=== PATIENT | female | born 1985 | race Caucasian/White ===

== ENCOUNTER 2017-10-17 14:04 | Emergency (ER) | payer OTHER, MEDICAID ==
[~2017-10-17] VITALS: Ht 175.3 cm; Wt 121.6 kg
[~2017-10-17 14:04] MED LIST: AMOXICILLIN 50500 MG PO; FLONASE 0.05%50 MCG NASAL; IBUPROFEN 800800 M1 PO; NAPROSYN500 MG PO; NOHOMEMEDICATIONS; PROVENTIL HFA6.7 G1 INH
[2017-10-17 14:47] LABS: URINE BILIRUBIN NEGATIVE (Negative); URINE BLOOD 3+ (Negative); URINE COLOR YELLOW; URINE GLUCOSE-RANDOM NEGATIVE (Negative); URINE KETONES NEGATIVE (Negative); URINE LEUKOCYTES-REFLEX NEGATIVE (Negative); URINE NITRITE-REFLEX NEGATIVE (Negative); URINE PROTEIN NEGATIVE (Negative); URINE SPECIFIC GRAVITY >= 1.030 (1.005-1.030); URINE UROBILINOGEN 0.2 E.U./dl (0.2-1.0)
[2017-10-17 14:48] LABS: URINE CLARITY HAZY
[2017-10-17] MEDS ORDERED: IBUPROFEN 800800 M1 PO (14:51)
[2017-10-17] MEDS ORDERED: ROBAXIN 750 MG750 M1 PO (14:51)
[2017-10-17 14:55] LABS: BACTERIA-REFLEX None Seen /HPF (None Seen); CASTS None Seen /LPF (None Seen); CRYSTALS None Seen /LPF (None Seen); MUCUS >6 Heavy strn/LPF (None Seen); SQUAMOUS >10 Many /LPF (0-3); URINE RBC 0-2 Rare /HPF (0-2); URINE WBC-REFLEX None Seen /HPF (0-5)
[2017-10-17 14:58] VITALS: BP 138/99
== END 2017-10-17 14:59 | disposition home or self-care (01) ==
LOC: M.ERS 14:04
PROVIDERS: Nurse Practitioner Family
DX: S39.012A Strain of muscle, fascia and tendon of lower back, initial encounter (principal); S29.012A Strain of muscle and tendon of back wall of thorax, initial encounter; F17.210 Nicotine dependence, cigarettes, uncomplicated; Z88.1 Allergy status to other antibiotic agents; Z88.5 Allergy status to narcotic agent; X58.XXXA Exposure to other specified factors, initial encounter; Y93.89 Activity, other specified; Y92.89 Other specified places as the place of occurrence of the external cause; Y99.8 Other external cause status

== ENCOUNTER 2017-10-30 08:16 | Emergency (ER) | payer OTHER, MEDICAID ==
[~2017-10-30] VITALS: Ht 175.3 cm; Wt 121.6 kg
[~2017-10-30 08:16] MED LIST changes: +ROBAXIN 750 MG750 M1 PO
[2017-10-30] MEDS ORDERED: ORAJEL (08:23)
[2017-10-30] MEDS ORDERED: IBUPROFEN 200200 M1 PO (08:23)
[2017-10-30] MEDS ORDERED: TYLENOL EXTRA500 MG PO (08:23)
[2017-10-30] MEDS ORDERED: NORCO 5-325 TA1 EACH PO (09:17)
[2017-10-30] MEDS ORDERED: IBUPROFEN 800800 MG PO (09:17)
[2017-10-30 09:24] VITALS: BP 150/102
== END 2017-10-30 09:24 | disposition home or self-care (01) ==
LOC: M.ERS 08:16
DX: K08.89 Other specified disorders of teeth and supporting structures (principal); F17.210 Nicotine dependence, cigarettes, uncomplicated; Z88.1 Allergy status to other antibiotic agents; Z88.5 Allergy status to narcotic agent

== ENCOUNTER 2017-12-03 15:29 | Emergency (ER) | payer OTHER, MEDICAID ==
[~2017-12-03] VITALS: Ht 175.3 cm; Wt 122.0 kg
[~2017-12-03 15:29] MED LIST changes: +IBUPROFEN 200200 M1 PO; +IBUPROFEN 800800 MG PO; +NORCO 5-325 TA1 EACH PO; +ORAJEL; +TYLENOL EXTRA500 MG PO
[2017-12-03 15:34] VITALS: BP 138/94
[2017-12-03] MEDS ORDERED: AMOXICILLIN 50500 MG PO (15:48)
[2017-12-03] MEDS ORDERED: TRAMADOL 50 MG50 MG PO (15:49)
[2017-12-03] MEDS ORDERED: LIDOCAINE VISC100 ML PO (15:49)
[2017-12-03] MEDS ORDERED: IBUPROFEN 800800 MG PO (15:49)
== END 2017-12-03 16:05 | disposition home or self-care (01) ==
LOC: M.ERS 15:29
DX: K08.89 Other specified disorders of teeth and supporting structures (principal); F17.210 Nicotine dependence, cigarettes, uncomplicated; Z88.1 Allergy status to other antibiotic agents; Z88.5 Allergy status to narcotic agent

== ENCOUNTER 2018-03-30 16:27 | Emergency (ER) | payer OTHER, MEDICAID ==
[~2018-03-30] VITALS: Ht 175.3 cm; Wt 129.3 kg
[~2018-03-30 16:27] MED LIST changes: +LIDOCAINE VISC100 ML PO; +TRAMADOL 50 MG50 MG PO
[2018-03-30 19:28] LABS: INFLUENZA A ANTIGEN None Detected (None Detect)
[2018-03-30] MEDS ORDERED: MEDROLDOSEPACK PO (19:36)
[2018-03-30] MEDS ORDERED: OSELB75 PO (19:36)
[2018-03-30] MEDS ORDERED: VENTOLIN HFA 1818 GM INH (19:36)
[2018-03-30 19:54] VITALS: BP 145/89
== END 2018-03-30 19:55 | disposition home or self-care (01) ==
LOC: M.ERS 16:27
PROVIDERS: Nurse Practitioner Family
DX: J11.1 Influenza due to unidentified influenza virus with other respiratory manifestations (principal); Z88.5 Allergy status to narcotic agent; Z88.6 Allergy status to analgesic agent

== ENCOUNTER 2018-12-04 10:13 | Emergency (ER) | payer OTHER, MEDICAID ==
[~2018-12-04] VITALS: Ht 175.3 cm; Wt 148.8 kg
[~2018-12-04 10:13] MED LIST changes: +MEDROLDOSEPACK PO; +OSELB75 PO; +VENTOLIN HFA 1818 GM INH
[2018-12-04] MEDS ORDERED: FLEXERIL PO (11:10)
[2018-12-04] MEDS ORDERED: TRAMADOL 50 MG50 MG PO (11:10)
[2018-12-04 11:20] VITALS: BP 133/94
== END 2018-12-04 11:21 | disposition home or self-care (01) ==
LOC: M.ERS 10:13
DX: S33.5XXA Sprain of ligaments of lumbar spine, initial encounter (principal); F17.210 Nicotine dependence, cigarettes, uncomplicated; Z88.6 Allergy status to analgesic agent; Z88.8 Allergy status to other drugs, medicaments and biological substances; X50.1XXA Overexertion from prolonged static or awkward postures, initial encounter; Y92.89 Other specified places as the place of occurrence of the external cause; Y93.89 Activity, other specified; Y99.8 Other external cause status

== ENCOUNTER 2020-11-26 07:45 | Emergency (ER) | payer OTHER ==
[~2020-11-26] VITALS: Ht 175.3 cm; Wt 153.8 kg
[~2020-11-26 07:45] MED LIST changes: +FLEXERIL PO
[2020-11-26 08:07] LABS: URINE BILIRUBIN NEGATIVE (Negative); URINE BLOOD 3+ (Negative); URINE CLARITY SL CLOUDY; URINE COLOR YELLOW; URINE GLUCOSE-RANDOM NEGATIVE (Negative); URINE KETONES NEGATIVE (Negative); URINE NITRITE-REFLEX NEGATIVE (Negative); URINE PROTEIN 2+ (Negative); URINE SPECIFIC GRAVITY 1.025 (1.005-1.030); URINE UROBILINOGEN 0.2 E.U./dl (0.2-1.0)
[2020-11-26 08:08] LABS: URINE LEUKOCYTES-REFLEX 2+ (Negative)
[2020-11-26 08:15] LABS: CASTS None Seen /LPF (None Seen); CRYSTALS None Seen /LPF (None Seen); MUCUS 0-3 Light strn/LPF (None Seen); URINE WBC-REFLEX >25 Many /HPF (0-5)
[2020-11-26 08:16] LABS: SQUAMOUS 4-10 Moderate /LPF (0-3)
[2020-11-26] MEDS ORDERED: PYRIDIUM200 MG PO (08:29)
[2020-11-26] MEDS ORDERED: NAPROSYN500 MG PO (08:29)
[2020-11-26] MEDS ORDERED: MACROBID 100 M100 M1 PO (08:29)
[2020-11-26 08:34] VITALS: BP 154/103
== END 2020-11-26 08:35 | disposition home or self-care (01) ==
LOC: M.ERS 07:45
PROVIDERS: Family Medicine
DX: N39.0 Urinary tract infection, site not specified (principal); K59.00 Constipation, unspecified; R33.9 Retention of urine, unspecified; F17.210 Nicotine dependence, cigarettes, uncomplicated; Z88.6 Allergy status to analgesic agent

== ENCOUNTER 2021-05-29 09:00 | Emergency (ER) | payer OTHER ==
[~2021-05-29] VITALS: Ht 175.3 cm; Wt 149.2 kg
[~2021-05-29 09:00] MED LIST changes: +MACROBID 100 M100 M1 PO; +PYRIDIUM200 MG PO
--- NOTE | 2021-05-29 09:56 | EKG ---
[place] [address] ELECTROCARDIOGRAM REPORT Name: TERESA MCCLAIN Room: [facility].R.#: [id number] Admission: Attend Phys: Discharge: Date of : 89 Date of Service: 05/29/21930 Report #: [id number] THIS REPORT FOR: //name// [facility] ED Test Date: 2021-05-29 Test Time: 09:31:45 Pat Name: TERESA MCCLAIN Department: Room: Gender: [employer] Et[employer] Operator: : 1985 Requested By: Zenon Sky Order Number: [id number] MD: Darron Escudero Measurements Intervals [place] Rate: 79 P: 37 [place]: 161 QRS: 43 QRSD: 95 T: 26 QT: 368 QTc: 422 Interpretive Statements Sinus rhythm No previous ECG available for comparison Electronically Signed On 05-29-2021 9:56:39 [employer]PERCALEND[employer] OPERATOR HELPER by Darron Escudero [email or web address] <ELECTRONICALLY SIGNED> By: Darron Escudero MD, [facility] 05/29/21955 0 0 Darron Escudero MD, FACC /EPI
[2021-05-29] MEDS ORDERED: XANAX 0.5 MG0.5 MG PO (10:21)
[2021-05-29 10:30] VITALS: BP 145/88
== END 2021-05-29 10:32 | disposition home or self-care (01) ==
LOC: M.ERS 09:00
DX: F41.9 Anxiety disorder, unspecified (principal); R03.0 Elevated blood-pressure reading, without diagnosis of hypertension; F17.210 Nicotine dependence, cigarettes, uncomplicated; F12.90 Cannabis use, unspecified, uncomplicated; Z88.5 Allergy status to narcotic agent; Z88.6 Allergy status to analgesic agent; Z88.8 Allergy status to other drugs, medicaments and biological substances